=== PATIENT | female | born 1960 | race Caucasian/White ===

== ENCOUNTER 2017-03-28 09:55 | Emergency (ER) | payer BC ==
[~2017-03-28] VITALS: Ht 172.7 cm; Wt 140.9 kg
[~2017-03-28 09:55] MED LIST: ASPIRIN 32325 MG/TAB PO; PREMPRO 0.625/21 TAB
[2017-03-28 09:57] VITALS: TEMP 98
[2017-03-28] MEDS ORDERED: SYNTHROID0.075 MG/T PO (10:02)
[2017-03-28 10:24] LABS: BASO # 0.1 (0.0-0.2); BASO % 1.9 % (0.0-2.0); EOS # 0.2 (0.0-0.7); EOS % 2.1 % (0-4.0); GRAN # 4.3 (1.4-6.5); GRAN % 60.9 % (42.2-75.2); HEMATOCRIT 45.3 % (37.0-47.0); LYMPH # 1.8 (1.2-3.4); LYMPH % 25.4 % (20.0-51.0); MEAN CELL VOLUME 90 fl (80.0-100.0); MEAN CORPUSCULAR HEMOGLOBIN 30 pg (27.0-31.0); MEAN CORPUSCULAR HGB CONC 33 g/dl (33.0-37.0); MEAN PLATELET VOLUME 9.5 fl (7.4-10.4); MONO # 0.7 (0.1-0.6); MONO % 9.4 % (1.7-9.3); PLATELET COUNT 308 K/mm3 (130-400); RED BLOOD COUNT 5.02 M/mm3 (4.10-5.30); REDCELL DISTRIBUTION WIDTH-CV 13.4 % (11.5-14.5)
[2017-03-28 10:48] LABS: ADJUSTED CALCIUM 8.7 mg/dL (8.4-10.2); ALANINE AMINOTRANSFERASE 23 U/L (9-52); ALBUMIN 4.1 gm/dL (3.5-5.0); ALKALINE PHOSPHATASE 111 U/L (50-136); ANION GAP 10 mmol/L (7-16); BILIRUBIN,TOTAL 0.9 mg/dL (0.0-1.0); BLOOD UREA NITROGEN 15 mg/dL (7-17); C-REACTIVE PROTEIN 0.7 mg/dL (0.0-0.9); CALCIUM 8.8 mg/dL (8.4-10.2); CARBON DIOXIDE 27 mmol/L (22-30); CHLORIDE 102 mmol/L (98-107); CREATININE, serum 0.75 mg/dL (0.52-1.25); GLUCOSE 92 mg/dL (74-106); LIPASE 79 U/L (23-300); POTASSIUM 4.3 mmol/L (3.4-5.0); SODIUM 138 mmol/L (137-145); TOTAL PROTEIN 7.4 gm/dL (6.4-8.2)
[2017-03-28] MEDS ORDERED: ZYRTEC 10MG10 MG (10:49)
[2017-03-28 10:57] LABS: B-TYPE NATRIURETIC PEPTIDE 97 pg/mL (0-125)
[2017-03-28 11:03] LABS: TROPONIN-I < 0.012 ng/mL (0.000-0.034)
[2017-03-28 11:41] LABS: INR 1.1 (0.8-3.0); PROTHROMBIN TIME 11.7 SECONDS (9.7-12.8)
[2017-03-28 11:44] LABS: PARTIAL THROMBOPLASTIN TIME 34.5 SECONDS (26.0-37.0)
[2017-03-28] MEDS ORDERED: ATIVAN 0.50.5 MG/TAB PO (12:08)
[2017-03-28 12:22] VITALS: BP 138/84; PULSE 64
== END 2017-03-28 12:22 | disposition home or self-care (01) ==
LOC: COL.ER 09:55
PROVIDERS: Emergency Medicine
DX: R07.9 Chest pain, unspecified (principal); F41.9 Anxiety disorder, unspecified; E03.9 Hypothyroidism, unspecified; Z79.82 Long term (current) use of aspirin

== ENCOUNTER → 2017-07-22 | Outpatient (CLI) | payer BC ==
[~2017-07-22] MED LIST changes: +ATIVAN 0.50.5 MG/TAB PO; +SYNTHROID0.075 MG/T PO; +ZYRTEC 10MG10 MG
== END ==
LOC: MC.RAD 13:31
DX: Z12.31 Encounter for screening mammogram for malignant neoplasm of breast (principal)

== ENCOUNTER → 2018-08-13 | Outpatient (CLI) | payer BC ==
[~2018-08-13] MED LIST changes: +PROTONIX 40MG T40 MG PO
== END ==
LOC: MC.RAD 16:53
DX: Z12.31 Encounter for screening mammogram for malignant neoplasm of breast (principal)

== ENCOUNTER → 2019-06-08 | Outpatient (CLI) | payer BC | LOC: MC.RAD 16:08 | DX: Z12.31 Encounter for screening mammogram for malignant neoplasm of breast (principal) ==

== ENCOUNTER → 2020-06-30 | Outpatient (CLI) | payer BC | LOC: MC.RAD 13:17 | DX: Z12.31 Encounter for screening mammogram for malignant neoplasm of breast (principal) ==

== ENCOUNTER → 2021-06-19 | Outpatient (CLI) | payer OTHER, BC ==
[~2021-06-19] MED LIST changes: +MOTRIN 600600 MG/TAB PO; +MUCINEX1200 MG PO; -SYNTHROID0.075 MG/T PO; +SYNTHROID0.088 MG/T PO
== END ==
LOC: MC.RAD 11:21
DX: N63.11 Unspecified lump in the right breast, upper outer quadrant (principal)

== ENCOUNTER 2021-10-02 12:43 | Outpatient (CLI) | payer BC ==
[~2021-10-02] VITALS: Ht 175.3 cm; Wt 127.0 kg
[2021-10-02] VITALS (7 sets, daily range): BP systolic 115–151; BP diastolic 69–83; PULSE 63–76; TEMP 98.5
[~2021-10-02 12:43] MED LIST changes: -MOTRIN 600600 MG/TAB PO; -MUCINEX1200 MG PO
[2021-10-02] MEDS ORDERED: MOTRIN 600600 MG/TAB PO (14:44)
[2021-10-02] MEDS ORDERED: MUCINEX1200 MG PO (14:44)
--- NOTE | 2021-10-02 15:20 | NUR ---
Pt tolerated infusion and 1 hr obs period without issue. INT DC'd with catheter intact. She was escorted out to ED entrance with steady gait.
== END 2021-10-02 15:58 | disposition home or self-care (01) ==
LOC: EUO 12:43
DX: U07.1 COVID-19 (principal); E66.9 Obesity, unspecified
CPT/HCPCS: M0245

== ENCOUNTER → 2022-06-20 | Outpatient (CLI) | payer BC ==
[~2022-06-20] MED LIST changes: +MOTRIN 600600 MG/TAB PO; +MUCINEX1200 MG PO
== END ==
LOC: MC.RAD 12:54
DX: Z12.31 Encounter for screening mammogram for malignant neoplasm of breast (principal)

== ENCOUNTER 2023-01-31 20:50 | Emergency (ER) | payer BC ==
[~2023-01-31] VITALS: Ht 177.8 cm; Wt 131.8 kg
[2023-01-31 21:00] VITALS: TEMP 97.1
[2023-01-31 21:05] LABS: BASO # 0.2 K/mm3 (0.0-0.2); BASO % 1.9 % (0.0-2.0); EOS # 0.2 K/mm3 (0.0-0.7); EOS % 2.8 % (0.0-4.0); GRAN # 4.5 K/mm3 (1.4-6.5); HEMATOCRIT 43.6 % (37.0-47.0); HEMOGLOBIN 14.6 g/dl (12.5-16.0); LYMPH # 2.3 K/mm3 (1.2-3.4); LYMPH % 28.7 % (20.0-51.0); MEAN CELL VOLUME 89 fl (80.0-100.0); MEAN CORPUSCULAR HEMOGLOBIN 30 pg (27-31); MEAN CORPUSCULAR HGB CONC 34 g/dl (33.0-37.0); MEAN PLATELET VOLUME 9.2 fl (7.4-10.4); MONO # 0.8 K/mm3 (0.1-0.6); MONO % 9.5 % (1.7-9.3); PLATELET COUNT 327 K/mm3 (130-400); RED BLOOD COUNT 4.88 M/mm3 (4.10-5.30); REDCELL DISTRIBUTION WIDTH-CV 13.2 % (11.5-14.5)
[2023-01-31 21:13] LABS: INR 0.9 (0.8-3.0); PROTHROMBIN TIME 10.7 SECONDS (9.7-12.8)
[2023-01-31 21:15] LABS: PARTIAL THROMBOPLASTIN TIME 30.4 SECONDS (26.0-37.0)
[2023-01-31 21:27] LABS: ALANINE AMINOTRANSFERASE 13 U/L (0-55); ALKALINE PHOSPHATASE 107 U/L (40-150); ANION GAP 11 mmol/L (7-16); AST,SGOT 14 U/L (5-34); BILIRUBIN,TOTAL 0.5 mg/dL (0.2-1.2); BLOOD UREA NITROGEN 13 mg/dL (10-20); CALCIUM 8.9 mg/dL (8.4-10.2); CARBON DIOXIDE 23 mmol/L (23-31); CHLORIDE 106 mmol/L (98-107); GLUCOSE 96 mg/dL (70-99); LIPASE 23 U/L (8-78); POTASSIUM 3.6 mmol/L (3.5-4.5); SODIUM 140 mmol/L (136-145); TOTAL PROTEIN 7.3 gm/dL (6.2-8.1)
[2023-01-31 21:36] LABS: TROPONIN-I < 0.010 ng/mL (0.00-0.033)
[2023-01-31] MEDS ORDERED: NITROSTAT0.4 MG/TAB SL (23:53)
[2023-02-01 00:17] VITALS: BP 180/78; PULSE 80
== END 2023-02-01 00:17 | disposition home or self-care (01) ==
LOC: COL.ER 20:50
PROVIDERS: Emergency Medicine
DX: R07.9 Chest pain, unspecified (principal); R11.0 Nausea; Z20.822 Contact with and (suspected) exposure to COVID-19

== ENCOUNTER → 2023-02-20 | Outpatient (CLI) | payer BC ==
[~2023-02-20] MED LIST changes: +NITROSTAT0.4 MG/TAB SL
== END ==
LOC: COL.VAS 11:55
DX: I34.0 Nonrheumatic mitral (valve) insufficiency (principal); I51.7 Cardiomegaly

== ENCOUNTER → 2024-06-28 | Outpatient (CLI) | payer BC | LOC: MC.RAD 14:32 | DX: Z12.31 Encounter for screening mammogram for malignant neoplasm of breast (principal) ==